=== PATIENT | female | born 1965 | race Caucasian/White ===

== ENCOUNTER 2017-03-05 12:44 | Emergency (ER) | payer BC ==
--- NOTE | 2017-03-05 13:21 | EDM.PDOC ---
ED HPI GENERAL MEDICAL PROBLEM - General Chief Complaint: Eye Problems Stated Complaint: eye irritation Time Seen by Provider: 03/05/17 13:01 Source of Information: Reports: Patient History Limitations: Reports: No Limitations - History of Present Illness INITIAL COMMENTS - FREE TEXT/NARRATIVE: Patient noticed that she developed redness in left eye since she woke this morning. No other complaint other than mild headache. Left eye is slightly irritated but no change in vision, no pain. Has not had similar problem in past. Denies other health changes. Did not rub eye or sustain trauma to eye. - Related Data Allergies Allergy/AdvReac Type Severity Reaction Status Date / Time Sulfa (Sulfonamide Allergy Rash Verified 03/05/17 12:52 Antibiotics) Home Meds: Home Meds Erythromycin Base [Erythromycin 0.5% Ophth Oint] 1 applic OP Q6H #1 tube [Rx] FA/Lycopene/Lut/MV,Ca,Iron,Min [Centrum] 1 tab PO DAILY 03/05/17 [History] Multivitamin with Minerals [Hair, Skin and Nails] 1 tab PO DAILY 03/05/17 [ History] Past Medical History - Past Health History Medical/Surgical History: Denies Medical/Surgical History ED ROS GENERAL - Review of Systems Review Of Systems: See Below Constitutional: Reports: No Symptoms HEENT: Reports: Other (redness left eye). Denies: Eye Discharge, Eye Pain, Nose Pain, Rhinitis, Sinus Problem, Throat Pain, Throat Swelling, Vision Change Respiratory: Reports: No Symptoms Cardiovascular: Reports: No Symptoms Endocrine: Reports: No Symptoms GI/Abdominal: Reports: No Symptoms : Reports: No Symptoms Musculoskeletal: Reports: No Symptoms Skin: Reports: No Symptoms Neurological: Reports: Headache. Denies: Confusion, Dizziness, Numbness, Paresthesia Psychiatric: Reports: No Symptoms Hematologic/Lymphatic: Reports: No Symptoms ED EXAM GENERAL W FULL EYE - Physical Exam Exam: See Below Exam Limited By: No Limitations General Appearance: Alert, WD/WN, No Apparent Distress Eye Exam: Bilateral Eye: EOMI, PERRL, Other (Subconjunctival hemorrhage noted left medial eye) Visual Acuity (R) 20/: 30 Visual Acuity (L) 20/: 20 Eyelids: Bilateral: Normal Appearance Conjunctiva & Sclera: Left: Subconjuctival Hemorrhage Extraocular Movements: Bilateral: Intact Pupils: Normal Accommodation Pupillary Size: Bilateral: 5 mm Pupillary Reaction: Bilateral: Brisk Ears: Normal External Exam Nose: No Blood Throat/Mouth: Normal Voice, No Airway Compromise Head: Atraumatic, Normocephalic Neck: Supple Respiratory/Chest: No Respiratory Distress Neurological: Alert, Oriented, Normal Cognition, Normal Gait Psychiatric: Normal Affect, Normal Mood Skin Exam: Warm, Dry, Normal Color Course - Re-Assessments/Exams Free Text/Narrative Re-Assessment/Exam: Appears to be simple subconjunctival hemorrhage. Recommended patient to watch for additional changes. Follow up as needed. Rx for EMycin Opth ointment for use if she notices crusting and irritation develop that suggests conjunctivitis. Departure - Departure Time of Disposition: 13:18 Disposition: Home, Self-Care 01 Condition: Good Clinical Impression: Subconjunctival hemorrhage, non-traumatic Qualifiers: Laterality: left Qualified Code(s): H11.32 - Conjunctival hemorrhage, left eye - Discharge Information Prescriptions: Erythromycin Base [Erythromycin 0.5% Ophth Oint] 1 applic OP Q6H #1 tube Instructions: Subconjunctival Hemorrhage Referrals: PCP,Unknown [Primary Care Provider] - Forms: ED Department Discharge Additional Instructions: Watch for changes. Follow up as needed if you have any concerns or other new developing problems. Fill prescription for eye ointment if you notice increased irritation and drainage/crusting of eye.
== END 2017-03-05 13:44 | disposition home or self-care (01) ==
LOC: LL.ED 12:44
CPT/HCPCS: 99283

== ENCOUNTER → 2019-06-11 | Outpatient (CLI) | payer BC | LOC: LL.MAM 10:01 | PROVIDERS: ATTEND Physician Assistant | DX: Z12.31 Encounter for screening mammogram for malignant neoplasm of breast (principal) | CPT/HCPCS: 77063; 77067 ==

== ENCOUNTER 2022-09-08 12:09 | Day surgery (SDC) | payer BC ==
[~2022-09-08 12:09] MED LIST: Midazolam 1 MG/ML 2 ML SDV ONE; Propofol 200 MG/20 ML SDV ONE; Sodium Chloride 0.9% 10 ML Syringe FLUSH PRN
[2022-09-08] MEDS: Lactated Ringers 1,000 ML IV SCH (12:39)
== END 2022-09-08 15:15 | disposition home or self-care (01) ==
LOC: LL.SDS 12:09
PROVIDERS: ATTEND Surgery
DX: Z12.11 Encounter for screening for malignant neoplasm of colon (principal); K63.5 Polyp of colon; K64.4 Residual hemorrhoidal skin tags; K64.8 Other hemorrhoids; E78.2 Mixed hyperlipidemia; G89.29 Other chronic pain; M54.50 Low back pain, unspecified; Z79.899 Other long term (current) drug therapy; Z88.2 Allergy status to sulfonamides
CPT/HCPCS: J2250; J2704; J7120